=== PATIENT | female | born 1955 | race Caucasian/White ===

== ENCOUNTER 2021-10-08 14:32 | Emergency (ER) | payer SELFPAY ==
[~2021-10-08] VITALS: Ht 165.1 cm; Wt 77.1 kg
[2021-10-08] MEDS ORDERED: ACETAMINOPHEN 325 MG TABLET PO ONE (14:45)
[2021-10-08] MEDS ORDERED: ACETAMINOPHEN ES 500 MG TABLET ONE (15:03)
--- NOTE | 2021-10-08 15:06 | NUR ---
Pt able to tolerate PO meds.
--- NOTE | 2021-10-08 15:08 | NUR ---
NAD, pt sitting on chair
[2021-10-08] MEDS ORDERED: IBUP-1955 PO (17:10)
[2021-10-08] MEDS ORDERED: LORA-258 PO (17:10)
--- NOTE | 2021-10-08 17:28 | NUR ---
Patient discharged to home in stable condition. Written and verbal after care instructions given. Patient verbalizes understanding of instructions. Stressed follow up or return to ER for worsening s/s. ACI given by ROBER Price (with translation). Pt ambulatory with steady gait.
--- NOTE | 2021-10-08 17:28 | NUR ---
IV removed. Catheter intact and site benign. Pressure and 4x4 gauze applied to site. No bleeding noted.
[2021-10-08 17:29] VITALS: BP 158/94
--- NOTE | 2021-10-08 17:33 | NUR ---
Patient discharged to home in stable condition. Written and verbal after care instructions given. Patient verbalizes understanding of instructions. Stressed follow up or return to ER for worsening s/s.
--- NOTE | 2021-10-08 17:33 | NUR ---
Pt ambulated out of ER, pt's family member was waiting for pt outside ER.
== END 2021-10-08 17:33 | disposition home or self-care (01) ==
LOC: ER 14:34
DX: S16.1XXA Strain of muscle, fascia and tendon at neck level, initial encounter (principal); V49.50XA Passenger injured in collision with unspecified motor vehicles in traffic accident, initial encounter; Y92.414 Local residential or business street as the place of occurrence of the external cause; M50.320 Other cervical disc degeneration, mid-cervical region, unspecified level; R94.31 Abnormal electrocardiogram [ECG] [EKG]; E11.9 Type 2 diabetes mellitus without complications; I10 Essential (primary) hypertension; S40.011A Contusion of right shoulder, initial encounter
CPT/HCPCS: 72125; 73030; 93005; A4663; A9150